=== PATIENT | female | born 1985 | race Caucasian/White ===

== ENCOUNTER 2018-07-31 14:57 | Emergency (ER) | payer MEDICAID ==
[~2018-07-31] VITALS: Ht 172.7 cm; Wt 108.9 kg
[2018-07-31 15:19] VITALS: BP 125/82; Ht 172.7 cm; Wt 108.9 kg
[2018-07-31] MEDS ORDERED: BUPRENORPHIN-N1 EACH SL (15:20)
[2018-07-31] MEDS ORDERED: OCUFLOX 0.3 % OP5 ML LEFT EYE (17:29)
[2018-07-31] MEDS ORDERED: ACULAR LS5 ML EACH EYE (17:29)
== END 2018-07-31 17:36 | disposition home or self-care (01) ==
LOC: D.ER 14:57
DX: S05.02XA Injury of conjunctiva and corneal abrasion without foreign body, left eye, initial encounter (principal); Y93.83 Activity, rough housing and horseplay; Y92.019 Unspecified place in single-family (private) house as the place of occurrence of the external cause; F17.200 Nicotine dependence, unspecified, uncomplicated

== ENCOUNTER → 2019-01-20 16:44 | Outpatient (CLI) | payer MEDICAID ==
[~2019-01-20 16:44] MED LIST: ACULAR LS5 ML EACH EYE; BUPRENORPHIN-N1 EACH SL; OCUFLOX 0.3 % OP5 ML LEFT EYE
[2019-01-20 17:35] LABS: BASOPHILS 0.1 % (0-2); EOSINOPHILS 1.9 % (0-7); HEMATOCRIT 32.8 % (36.0-48.0); IMMATURE GRANULOCYTES 0.2 % (0-5); LYMPHOCYTES 26.4 % (15-50); MCH 30.4 pg (26.0-34.0); MCHC 33.5 g/dL (31.0-37.0); MCV 90.6 fL (80.0-100.0); MEAN PLATELET VOLUME 9.7 fL (7.4-10.4); MONOCYTES 8.2 % (2-11); NEUTROPHILS 63.2 % (40-80); PLATELET COUNT 158 10x3/uL (130-400); RBC 3.62 10x6/uL (4.00-5.40); RDW 13.7 % (11.5-14.5); WBC 9.1 10x3/uL (4.8-10.8)
[2019-01-20 17:48] LABS: ALBUMIN 2.6 g/dL (3.4-5.0); ALKALINE PHOSPHATASE 68 U/L (46-116); ALT (SGPT) 17 U/L (10-68); BILIRUBIN - TOTAL 0.12 mg/dL (0.2-1.3); CALC OSMOLALITY 277 mosm/kg (275-300); CALCIUM 8.4 mg/dL (8.5-10.1); CARBON DIOXIDE 22.9 mmol/L (21.0-32.0); CHLORIDE - SERUM 104 mmol/L (98-107); CREATININE - SERUM 0.5 mg/dL (0.6-1.3); GLUCOSE 93 mg/dL (74-106); POTASSIUM - SERUM 3.2 mmol/L (3.5-5.1); PROTEIN - SERUM 6.2 g/dL (6.4-8.2); SODIUM 140 mmol/L (136-145); UREA NITROGEN 10 mg/dL (7-18); eGFR NON AFRICAN AMERICAN > 90 mL/min (90-120)
[2019-01-20 17:50] LABS: CREATININE - URINE 142.8 mg/dL (30-125); PRO/CRE RATIO URINE 0.1 mg/g; PROTEIN - URINE 12.2 mg/dL (0.0-11.9)
[2019-01-20 17:51] LABS: LDH 137 U/L (81-234); URIC ACID 4.7 mg/dL (2.6-7.2)
== END | disposition home or self-care (01) ==
LOC: D.LDO 16:44
PROVIDERS: Obstetrics & Gynecology
DX: O26.899 Other specified pregnancy related conditions, unspecified trimester (principal); Z3A.00 Weeks of gestation of pregnancy not specified